=== PATIENT | female | born 1930 ===

== ENCOUNTER 2022-08-04 20:17 | Inpatient (IN) | payer MEDICARE, MEDICAID ==
[2022-08-04 21:26] LABS: #Eosinphils 0.1 thou/uL (0.0-0.7); #Lymphocytes 1.2 thou/uL (1.20-3.40); #Monocytes 0.4 thou/uL (0.11-0.59); #Neutrophils 7.5 thou/uL (1.40-6.50); %Basophils 0.4 % (0.0-1.0); %Eosinophils 1.3 % (0.0-10.0); %Lymphocytes 12.9 % (21.0-51.0); %Monocytes 3.8 % (0.0-10.0); %Neutrophils 81.7 % (42.0-75.0); Hemoglobin 10.6 g/dL (12.0-16.0); Mean Corpuscular HGB CONC 36.2 g/dL (32.0-36.0); Mean Platelet Volume 8.1 fL (7.4-10.4); Platelet Count 176 10x3/uL (130-400); RBC Distribution Width 13.8 % (11.5-14.5); White Blood Cell (WBC) Count 9.2 10x3/uL (4.8-10.8)
[2022-08-04 21:33] LABS: INR-International Normal Ratio 1.1; PTT 26.4 sec (22.9-36.1); Prothrombin Time 15.1 sec (12.0-14.7)
[2022-08-04 21:42] LABS: ALT (SGPT) Less than 7 U/L (8-55); AST (SGOT) 7 U/L (5-34); Albumin 3.7 g/dL (3.4-4.8); Alkaline Phosphatase 52 U/L (40-110); Anion Gap 12 mmol/L (10-20); BUN (Urea Nitrogen) 21 mg/dL (9.8-20.1); Bilirubin, Total 1.7 mg/dL (0.2-1.2); CK (CPK) 36 U/L (29-168); Calc. Creatinine Clearance 0 mL/min (70-130); Calcium 9.2 mg/dL (7.8-10.44); Carbon Dioxide 27 mmol/L (23-31); Chloride 102 mmol/L (98-107); Estimated GFR 83; Globulin 2.3 g/dL (2.4-3.5); Glucose 133 mg/dL (83-110); Potassium 3.7 mmol/L (3.5-5.1); Sodium 137 mmol/L (136-145)
[2022-08-04 22:23] LABS: Bacteria/HPF 4+ HPF (None Seen); Bilirubin Negative (Negative); Blood, Urine Negative (Negative); Clarity Extra Turbid (Clear); Glucose, Urine (Dipstick) Normal (Negative); Ketone, Urine Negative (Negative); Leukocyte 500 Leu/uL (Negative); Nitrite 2+ (Negative); Protein, Urine (Dipstick) 100 mg/dL (Neg-Trace); Renal Epithelial 0-3 HPF (None Seen); Specific Gravity, Urine 1.034 (1.002-1.036); Squamous Epithelial 0-3 HPF (0-3); Transitional Epithelial 0-3 HPF (None Seen); Triple Phosphate Crystal Rare HPF (None Seen); WBC/HPF Greater than 50 HPF (0-3); pH, Urine 7.5 (5.0-9.0)
[2022-08-04] MEDS ORDERED: Acetaminophen 500 MG TAB ONE (23:04)
[2022-08-04] MEDS ORDERED: cefTRIAXone\\ROCEPHIN 2 GM VIAL ONE (23:04)
[2022-08-04] MEDS ORDERED: Acetaminophen 325 MG TAB PO PRN (23:45)
[2022-08-04] MEDS ORDERED: Ondansetron ODT 4 MG TAB SL PRN (23:45)
[2022-08-04] MEDS ORDERED: Ondansetron PF 4 MG/2 ML Vial IVP PRN (23:45)
[2022-08-05] MEDS ORDERED: Acetaminophen 650 MG Suppository PR PRN (01:15)
[2022-08-05] MEDS: Sodium Chloride 0.9% 1,000 ML IV SCH ×2 (02:55→12:14)
[2022-08-05 02:58] VITALS: BMI 19.2
[2022-08-05 06:42] LABS: #Basophils 0.1 thou/uL (0.0-0.2); #Eosinphils 0.1 thou/uL (0.0-0.7); #Lymphocytes 1.4 thou/uL (1.20-3.40); #Monocytes 0.6 thou/uL (0.11-0.59); #Neutrophils 5.3 thou/uL (1.40-6.50); %Basophils 0.8 % (0.0-1.0); %Lymphocytes 19.2 % (21.0-51.0); %Monocytes 7.3 % (0.0-10.0); %Neutrophils 71.7 % (42.0-75.0); Hemoglobin 9.6 g/dL (12.0-16.0); Mean Corpuscular HGB CONC 34.3 g/dL (32.0-36.0); Mean Corpuscular Hemoglobin 45.8 pg (27.0-31.0); Mean Platelet Volume 8.6 fL (7.4-10.4); Platelet Count 143 10x3/uL (130-400); RBC Distribution Width 14.2 % (11.5-14.5); Red Blood Cell (RBC) Count 2.09 mill/uL (4.20-5.40); White Blood Cell (WBC) Count 7.4 10x3/uL (4.8-10.8)
[2022-08-05 06:50] LABS: Anion Gap 12 mmol/L (10-20); BUN (Urea Nitrogen) 14 mg/dL (9.8-20.1); Calc. Creatinine Clearance 49 mL/min (70-130); Calcium 8.2 mg/dL (7.8-10.44); Carbon Dioxide 22 mmol/L (23-31); Chloride 107 mmol/L (98-107); Estimated GFR 88; Glucose 94 mg/dL (83-110); Potassium 3.3 mmol/L (3.5-5.1); Sodium 138 mmol/L (136-145)
[2022-08-05] MEDS: Acetaminophen 325 MG TAB PO PRN (16:55)
[2022-08-05] MEDS ORDERED: Potassium Chloride 20 MEQ TAB PO SCH (17:30)
[2022-08-05] MEDS: Metoprolol Tartrate 50 MG TAB PO SCH (17:42)
[2022-08-05] MEDS ORDERED: Digoxin 0.5 MG/2 ML AMP SLOW IVP SCH (17:45)
[2022-08-05] MEDS ORDERED: Metoprolol Tartrate 5 MG/5 ML VIAL IVP SCH (17:45)
[2022-08-05] MEDS ORDERED: Non-Formulary Item 1 EACH (Melatonin [Melatonin] 5 MG Tablet) PO SCH (21:00)
[2022-08-05] MEDS ORDERED: cefTRIAXone\\ROCEPHIN 1 GM in Sodium Chloride 0.9% 100 ML IVPB SCH (21:00)
[2022-08-05] MEDS ORDERED: Melatonin 3 MG TAB PO SCH (21:00)
[2022-08-06 05:26] LABS: Anion Gap 11 mmol/L (10-20); BUN (Urea Nitrogen) 10 mg/dL (9.8-20.1); Calc. Creatinine Clearance 47 mL/min (70-130); Calcium 8.7 mg/dL (7.8-10.44); Carbon Dioxide 26 mmol/L (23-31); Chloride 103 mmol/L (98-107); Estimated GFR 87; Glucose 95 mg/dL (83-110); Potassium 3.3 mmol/L (3.5-5.1); Sodium 137 mmol/L (136-145)
[2022-08-06 05:34] LABS: #Eosinphils 0.1 thou/uL (0.0-0.7); #Lymphocytes 1.2 thou/uL (1.20-3.40); #Monocytes 0.3 thou/uL (0.11-0.59); #Neutrophils 4.6 thou/uL (1.40-6.50); %Basophils 0.5 % (0.0-1.0); %Eosinophils 1.5 % (0.0-10.0); %Lymphocytes 18.6 % (21.0-51.0); %Monocytes 5.1 % (0.0-10.0); %Neutrophils 74.3 % (42.0-75.0); Hemoglobin 9.3 g/dL (12.0-16.0); Mean Corpuscular Hemoglobin 45.7 pg (27.0-31.0); Mean Platelet Volume 8.8 fL (7.4-10.4); Platelet Count 120 10x3/uL (130-400); Red Blood Cell (RBC) Count 2.02 mill/uL (4.20-5.40); White Blood Cell (WBC) Count 6.2 10x3/uL (4.8-10.8)
[2022-08-06] MEDS: Acetaminophen 325 MG TAB PO PRN ×2 (06:47→18:32)
[2022-08-06] MEDS ORDERED: Polyethylene Glycol 3350 17 GM Packet PO SCH (09:00)
[2022-08-06] MEDS: Metoprolol Tartrate 50 MG TAB PO SCH ×2 (10:24→10:44)
[2022-08-06 16:18] VITALS: BP 106/60; TEMP 97.9
== END 2022-08-06 20:03 | DRG 563 ==
LOC: ERS 20:17 → SURG B 23:44 → 2NO 08-05 13:56
PROVIDERS: ADMIT Student in an Organized Health Care Education/Training Program; ATTEND Internal Medicine
DX: S52.572A Other intraarticular fracture of lower end of left radius, initial encounter for closed fracture (principal); N39.0 Urinary tract infection, site not specified; I48.20 Chronic atrial fibrillation, unspecified; Z66 Do not resuscitate; G30.9 Alzheimer's disease, unspecified; F02.80 Dementia in other diseases classified elsewhere, unspecified severity, without behavioral disturbance, psychotic disturbance, mood disturbance, and anxiety; K21.9 Gastro-esophageal reflux disease without esophagitis; W19.XXXA Unspecified fall, initial encounter; Z86.73 Personal history of transient ischemic attack (TIA), and cerebral infarction without residual deficits; Z90.710 Acquired absence of both cervix and uterus; Z88.5 Allergy status to narcotic agent; Z99.3 Dependence on wheelchair
CPT/HCPCS: 36415; 51701; 70450; 71045; 72125; 80048; 80053; 81003; 81015; 82550; 84484; 85025; 85610; 85730; 93005; 93306; 96365; J0696; J1650; J3490; J7050